=== PATIENT | female | born 2000 | race American Indian/Alaskan Native ===

== ENCOUNTER 2020-03-21 14:28 | Inpatient (IN) | payer OTHER ==
[2020-03-21] MEDS ORDERED: ONDANSETRON 4 MG/2 ML INJ IV PRN (16:07)
[2020-03-21] MEDS ORDERED: DINOPROSTONE 10 MG VAG SUPP VG ONE (16:07)
[2020-03-21] MEDS ORDERED: MINERAL OIL 30 ML ORAL LIQD PO PRN (16:07)
[2020-03-21] MEDS ORDERED: ePHEDrine SULFATE 50 MG/1 ML INJ IV PRN (16:07)
[2020-03-21] MEDS ORDERED: ACETAMINOPHEN 325 MG TAB PO PRN (16:07)
[2020-03-21] MEDS ORDERED: TERBUTALINE 1 MG/1 ML INJ SUB-Q PRN (16:07)
[2020-03-21] MEDS ORDERED: OXYTOCIN 20 UNIT/1000ML DRIP 20 UNITS/1,000 ML BAG IV SCH (17:00)
[2020-03-21 17:29] LABS: Hematocrit 34.8 % (30.3-42.9); Hemoglobin 11.3 gm/dl (10.1-14.3); Mean Corpuscular HGB Conc 33 % (30-34); Mean Corpuscular Volume 82 fl (79-97); Platelet Count 118 K/mm3 (140-440); Red Blood Count 4.24 M/mm3 (3.65-5.03); Red Cell Distribution Width 14.4 % (13.2-15.2)
[2020-03-21 17:51] LABS: Alanine Aminotransferase 8 units/L (7-56); Uric Acid 5.1 mg/dL (3.5-7.6)
[2020-03-21] MEDS: LACTATED RINGERS 1,000 ML IV SCH (21:35)
[2020-03-21] MEDS ORDERED: MAGNESIUM SULFATE 4 GM/100 ML BAG IV ONE (21:54)
[2020-03-21] MEDS ORDERED: MAGNESIUM SULFATE 40GM/1000ML 40 GM/1,000 ML BAG IV SCH (22:00)
[2020-03-22] MEDS: BUTORPHANOL 2 MG/1 ML INJ IV PRN ×2 (00:27→03:19)
--- NOTE | 2020-03-22 00:41 | History and Physical Report ---
History of Present Illness Date of examination: 03/22/20 Date of admission: 03/22/2020 Chief complaint: Presents for induction of labor due to Preeclampsia. Denies HAs, visual changes, epigastic pain, edema, and heartburn. History of present illness: Late entry to care; course complicated by RH Negative (received Rhogam on 01/17/20); Vitamin D Deficiency; and third trimester complicated by elevated blood pressures. Past History Past Medical History: neurologic (migraines) Family/Genetic History: diabetes, hypertension - Obstetrical History Expected Date of Delivery: 04/07/20 Actual Gestation: 37 Week(s) 5 Day(s) : 2 Para: 1 Hx # Term Pregnancies: 1 Number of Living Children: 1 #1 Infant Gender: Male year: 1,[birth year] Birthweight: 3.799 kg Method of Delivery: Vaginal Gestational age at delivery: 40 Complications: other (Preeclampsia) Medications and Allergies Allergies Allergy/AdvReac Type Severity Reaction Status Date / Time avocado Allergy Rash Verified 03/21/20 19:35 banana Allergy Rash Verified 03/21/20 19:35 lactose Allergy Rash Verified 03/21/20 19:35 latex Allergy Rash Verified 03/21/20 19:35 tomato AdvReac Severe Anaphylaxis Verified 03/21/20 15:21 Home Medications Medication Instructions Recorded Confirmed Last Taken Type Aspirin 80 mg PO DAILY 03/21/20 03/21/20 03/21/20 01:00 History Active Meds: Active Medications Acetaminophen (Tylenol) 650 mg PO Q4H PRN PRN Reason: Pain, Mild (1-3) Butorphanol Tartrate (Stadol) 2 mg IV Q2H PRN PRN Reason: Pain , Severe (7-10) Last Admin: 03/22/20 00:27 Dose: 2 mg Documented by: Ephedrine Sulfate (Ephedrine Sulfate) 10 mg IV Q2M PRN PRN Reason: Hypotension Lactated Ringer's (Lactated Ringers) 1,000 mls @ 125 mls/hr IV DIRECT CLAUDIA Last Admin: 03/21/20 21:35 Dose: 125 mls/hr Documented by: Oxytocin/Sodium Chloride (Pitocin/Ns 20 Unit/1000ml Drip) 20 units in 1,000 mls @ 125 mls/hr IV DIRECT CLAUDIA Magnesium Sulfate (Magnesium Sulfate 40gm/1000ml) 40 gm in 1,000 mls @ 50 mls/hr IV DIRECT CLAUDIA Last Admin: 03/22/20 00:21 Dose: 2 gm/hr, 50 mls/hr Documented by: Mineral Oil (Mineral Oil) 30 ml PO QHS PRN PRN Reason: Constipation Ondansetron HCl (Zofran) 4 mg IV Q8H PRN PRN Reason: Nausea And Vomiting Terbutaline Sulfate (Brethine) 0.25 mg SUB-Q ONCE PRN PRN Reason: Hyperstimulation/Hypertonicity Review of Systems All systems: negative - Vital Signs Vital signs: Vital Signs Pulse BP 85 143/92 03/21/20 15:17 03/21/20 15:17 Temp Pulse Resp BP Pulse Ox 99.2 F 90 18 130/89 99 03/21/20 19:30 03/22/20 00:35 03/21/20 19:30 03/22/20 00:35 03/22/20 00:35 - Physical Exam Breasts: Positive: normal Cardiovascular: Regular rate Lungs: Positive: Clear to auscultation, Normal air movement Abdomen: Positive: normal appearance, soft, normal bowel sounds Genitourinary (Female): Positive: normal external genitalia, normal perenium Anus/Rectum: Positive: normal perianal skin Extremities: Positive: normal - Obstetrical FHR: category 1 Uterine Contraction Monitor Mode: External Cervical Dilatation: 6.5 (Small amount of clear fluid upon AROM at 1213) Cervical Effacement Percentage: 70 station: 0 Uterine Contraction Pattern: Regular Uterine Tone Measurement Phase: Resting Uterine Contraction Intensity: Moderate Results Result Diagrams: 03/21/20 17:00 03/21/20 17:00 Abnormal lab results 03/21/20 03/21/20 Range/Units 17:00 17:00 MCH 27 L (28-32) pg Plt Count 118 L (140-440) K/mm3 Lactate Dehydrogenase 237 H (91-180) units/L All other labs normal. Assessment and Plan A: IUP @ 37 5/7 Weeks Category I Tracing Preclampsia GBS Negative P: Admit to L&D Per Routine Orders Cervidil Induction AROM Magnesium Sulfate 4/G loading dose; 2G/hourly
[2020-03-22] MEDS ORDERED: OXYTOCIN DRIP 30 UNITS/500 ML BAG IV SCH (01:35)
[2020-03-22] MEDS ORDERED: LIDOCAINE (2%) 20 MG/1 ML VIAL 20 ML MDV INFILTRATI ONE ×2 (03:07→03:25)
[2020-03-22] MEDS ORDERED: LANOLIN/ZINC/DIMETHICONE (LANSINOH) 7 GM TP PRN (03:46)
[2020-03-22] MEDS ORDERED: diphenhydrAMINE 25 MG CAP PO PRN (03:46)
[2020-03-22] MEDS ORDERED: HYDROcodone/ACETAMINOPHEN 5-325 MG TAB PO PRN (03:46)
[2020-03-22] MEDS ORDERED: WITCH HAZEL/ GLYCERIN PAD TP PRN (03:46)
--- NOTE | 2020-03-22 03:59 | Procedure Note ---
OB Delivery Note - Delivery Date of Delivery: 03/22/20 (0257) Surgeon: SIVAN CHINCHILLA Estimated blood loss: other (400) - Vaginal Delivery presentation: vertex Delivery position: OA Intrapartum events: gestational hypertension, preeclampsia Delivery induction: cervidil Delivery augmentation: rupture of membranes, pitocin Delivery monitor: external FHT, external uterine Route of delivery: Delivery placenta: spontaneous Delivery cord: 3 umbilical vessels Episiotomy: none Delivery laceration: 2nd degree Delivery repair: vicryl Anesthesia: local Delivery comments: of a live 6'9 female infant over a 2nd degree perineal laceration/ 1st degree periurethral under IV pain control with Apgars of 8 and 9 at 0257 on 03/22/2020. Infant directly to maternal abd/chest, skin to skin contact. Spontaneous delivery of placenta complete and intact with [place] side presenting at 0302. Fundus is firm and midline located 4 below the U. Lochia is scant. Delayed cord clamping and cutting. Vaginal lacerations repaired with 2-[address]-1 under local 2% Lidocaine. Cord blood collected; placenta to pathology. Continue Magnesium Sulfate 2G/hourly x 24 hour post delivery due to Preeclampsia. - Infant A at 1 minute: 8 at 5 minutes: 9 Gender: Female (6'9)
[2020-03-22] MEDS: PRENATAL VIT27-FE FUMARATE-FOLIC ACID VIT TAB PO SCH (10:04)
[2020-03-22] MEDS: LACTATED RINGERS 1,000 ML IV SCH (10:09)
[2020-03-22] MEDS ORDERED: LACTATED RINGERS 1,000 ML IV ONE (10:30)
[2020-03-22] MEDS: IBUPROFEN 600 MG TAB PO SCH ×2 (11:26→20:07)
[2020-03-22 18:24] LABS: Hematocrit 27.5 % (30.3-42.9)
[2020-03-22] MEDS ORDERED: MAGNESIUM SULFATE 40GM/1000ML 40 GM/1,000 ML BAG IV SCH (19:46)
[2020-03-23] MEDS: IBUPROFEN 600 MG TAB PO SCH ×4 (03:56→23:18)
[2020-03-23] MEDS: PRENATAL VIT27-FE FUMARATE-FOLIC ACID VIT TAB PO SCH (09:29)
--- NOTE | 2020-03-23 11:49 | Progress Note ---
Assessment and Plan - Patient Problems (1) Status post normal vaginal delivery Current Visit: Yes Status: Acute Plan to address problem: Continue routine PP orders Anticipate d/c home tomorrow F/U at office in 6 wks for routine PP visit Subjective - Subjective Date of service: 03/23/20 Principal diagnosis: S/P ; PPD#1 Interval history: See admission H & P; OB delivery summary and PP progress notes Patient reports: appetite normal, voiding normally, pain well controlled, flatus, ambulating normally [place]: doing well, bottle feeding Objective - Vital Signs Latest vital signs: Vital Signs Temp Pulse Resp BP Pulse Ox 03/23/20 08:43 97.8 F 88 16 121/80 100 03/23/20 05:16 86 18 129/85 100 03/23/20 04:40 98.5 F 94 H 18 128/74 100 03/23/20 03:29 107 H 100 03/23/20 03:24 98 H 100 03/23/20 03:21 96 H 122/82 03/23/20 03:19 102 H 100 03/23/20 03:14 100 H 100 03/23/20 03:12 110 H 93 03/23/20 03:09 101 H 100 03/23/20 03:06 101 H 115/76 03/23/20 03:04 106 H 100 03/23/20 02:59 103 H 100 03/23/20 02:54 96 H 100 03/23/20 02:51 98 H 124/75 03/23/20 02:49 99 H 100 03/23/20 02:44 99 H 100 03/23/20 02:39 103 H 100 03/23/20 02:36 97 H 119/74 03/23/20 02:34 103 H 100 03/23/20 02:29 99 H 100 03/23/20 02:24 102 H 100 03/23/20 02:21 96 H 123/77 03/23/20 02:19 101 H 100 03/23/20 02:14 100 H 100 03/23/20 02:09 103 H 100 03/23/20 02:06 102 H 128/82 03/23/20 02:04 98.9 F 100 H 18 100 03/23/20 01:59 102 H 100 03/23/20 01:54 99 H 100 03/23/20 01:51 93 H 125/72 03/23/20 01:49 103 H 100 03/23/20 01:44 106 H 100 03/23/20 01:39 101 H 99 03/23/20 01:36 105 H 132/71 03/23/20 01:34 115 H 100 03/23/20 01:29 114 H 100 03/23/20 01:24 101 H 99 03/23/20 01:21 106 H 125/68 03/23/20 01:19 99 H 100 03/23/20 01:14 99 H 99 03/23/20 01:09 101 H 100 03/23/20 01:06 104 H 121/68 03/23/20 01:04 105 H 99 03/23/20 01:01 108 H 94 03/23/20 00:59 107 H 100 03/23/20 00:54 113 H 100 03/23/20 00:52 107 H 118/43 03/23/20 00:49 101 H 100 03/23/20 00:44 110 H 100 03/23/20 00:39 100 H 100 03/23/20 00:36 103 H 125/75 03/23/20 00:34 107 H 100 03/23/20 00:29 104 H 100 03/23/20 00:24 106 H 100 03/23/20 00:21 104 H 128/80 03/23/20 00:19 105 H 100 03/23/20 00:14 105 H 100 03/23/20 00:09 107 H 100 03/23/20 00:06 101 H 125/80 03/23/20 00:04 107 H 100 03/22/20 23:59 114 H 100 03/22/20 23:54 101 H 100 03/22/20 23:51 105 H 119/78 03/22/20 23:49 99 H 100 03/22/20 23:44 108 H 100 03/22/20 23:39 104 H 100 03/22/20 23:36 106 H 117/78 03/22/20 23:34 104 H 100 03/22/20 23:29 111 H 100 03/22/20 23:24 99 H 100 03/22/20 23:21 104 H 122/79 03/22/20 23:19 107 H 100 03/22/20 23:14 104 H 100 03/22/20 23:09 112 H 100 03/22/20 23:06 106 H 126/85 03/22/20 23:04 100 H 97 03/22/20 22:59 98.5 F 105 H 18 100 03/22/20 22:58 106 H 89 03/22/20 22:54 107 H 99 03/22/20 22:51 107 H 134/81 03/22/20 22:49 108 H 100 03/22/20 22:44 110 H 100 03/22/20 22:39 101 H 100 03/22/20 22:36 97 H 127/81 03/22/20 22:34 103 H 100 03/22/20 22:29 98 H 100 03/22/20 22:24 104 H 100 03/22/20 22:21 103 H 133/89 03/22/20 22:19 101 H 100 03/22/20 22:14 108 H 100 03/22/20 22:09 109 H 100 03/22/20 22:06 104 H 129/86 03/22/20 22:04 111 H 100 03/22/20 21:59 107 H 100 03/22/20 21:54 107 H 100 03/22/20 21:51 99 H 115/76 03/22/20 21:49 91 H 100 03/22/20 21:44 99 H 99 03/22/20 21:39 88 100 03/22/20 21:36 94 H 126/82 03/22/20 21:34 93 H 100 03/22/20 21:29 103 H 99 03/22/20 21:24 94 H 100 03/22/20 21:21 96 H 120/84 03/22/20 21:19 99 H 100 03/22/20 21:14 100 H 100 03/22/20 21:09 95 H 100 03/22/20 21:06 99 H 128/89 03/22/20 21:04 100 H 100 03/22/20 20:59 98 H 100 03/22/20 20:54 94 H 100 03/22/20 20:51 96 H 138/89 03/22/20 20:49 98 H 100 03/22/20 20:44 97 H 100 03/22/20 20:39 95 H 100 03/22/20 20:36 95 H 131/81 03/22/20 20:34 95 H 100 03/22/20 20:29 91 H 100 03/22/20 20:24 99 H 100 03/22/20 20:21 96 H 133/87 03/22/20 20:19 105 H 99 03/22/20 20:14 107 H 100 03/22/20 20:09 97 H 100 03/22/20 20:06 92 H 133/86 03/22/20 20:04 107 H 100 03/22/20 19:59 105 H 100 03/22/20 19:54 99 H 100 03/22/20 19:51 109 H 127/88 03/22/20 19:50 99.3 F 18 100 03/22/20 19:49 110 H 100 03/22/20 19:44 102 H 100 03/22/20 19:39 105 H 100 03/22/20 19:36 104 H 126/89 03/22/20 19:34 97 H 100 03/22/20 19:29 97 H 100 03/22/20 19:24 100 H 100 03/22/20 19:21 107 H 128/81 03/22/20 19:19 102 H 100 03/22/20 19:14 107 H 100 03/22/20 19:09 100 H 100 03/22/20 19:06 97 H 134/84 03/22/20 19:04 103 H 100 03/22/20 18:59 108 H 100 03/22/20 18:54 106 H 100 03/22/20 18:51 99 H 133/86 03/22/20 18:49 100 H 100 03/22/20 18:44 105 H 100 03/22/20 18:39 99 H 100 03/22/20 18:37 99 H 128/83 03/22/20 18:34 95 H 100 03/22/20 18:29 90 100 03/22/20 18:24 97 H 100 03/22/20 18:21 93 H 121/80 03/22/20 18:19 98 H 100 03/22/20 18:14 104 H 100 03/22/20 18:09 106 H 100 03/22/20 18:06 102 H 121/84 03/22/20 18:04 98 H 100 03/22/20 17:59 92 H 100 03/22/20 17:54 103 H 100 03/22/20 17:51 108 H 129/86 03/22/20 17:49 106 H 100 03/22/20 17:44 109 H 100 03/22/20 17:39 108 H 99 03/22/20 17:36 104 H 124/81 03/22/20 17:34 101 H 100 03/22/20 17:29 104 H 100 03/22/20 17:24 103 H 100 03/22/20 17:21 97 H 130/86 03/22/20 17:19 97 H 100 03/22/20 17:14 112 H 100 03/22/20 17:09 104 H 100 03/22/20 17:06 104 H 134/92 03/22/20 17:04 104 H 100 03/22/20 16:59 107 H 100 03/22/20 16:54 106 H 100 03/22/20 16:51 99 H 124/82 03/22/20 16:49 104 H 100 03/22/20 16:44 107 H 100 03/22/20 16:39 109 H 100 03/22/20 16:36 104 H 130/87 03/22/20 16:34 113 H 100 03/22/20 16:29 114 H 100 03/22/20 16:24 110 H 100 03/22/20 16:21 109 H 117/77 03/22/20 16:19 103 H 99 03/22/20 16:14 110 H 100 03/22/20 16:09 104 H 100 03/22/20 16:06 110 H 119/80 03/22/20 16:04 111 H 100 03/22/20 15:59 109 H 100 03/22/20 15:54 109 H 99 03/22/20 15:51 105 H 125/76 03/22/20 15:49 103 H 99 03/22/20 15:44 117 H 100 03/22/20 15:39 109 H 100 03/22/20 15:36 110 H 123/75 03/22/20 15:34 107 H 100 03/22/20 15:29 111 H 100 03/22/20 15:24 110 H 100 03/22/20 15:21 105 H 129/72 03/22/20 15:19 117 H 100 03/22/20 15:14 117 H 100 03/22/20 15:09 118 H 100 03/22/20 15:06 110 H 123/68 03/22/20 15:04 111 H 99 03/22/20 15:00 98.6 F 03/22/20 14:59 104 H 99 03/22/20 14:54 106 H 100 03/22/20 14:51 108 H 123/64 03/22/20 14:49 107 H 100 03/22/20 14:44 122 H 100 03/22/20 14:39 118 H 99 03/22/20 14:36 111 H 126/73 03/22/20 14:34 107 H 99 03/22/20 14:29 105 H 100 03/22/20 14:24 108 H 100 03/22/20 14:21 105 H 122/72 03/22/20 14:19 110 H 100 03/22/20 14:14 108 H 100 03/22/20 14:09 110 H 100 03/22/20 14:06 111 H 128/76 03/22/20 14:04 108 H 100 03/22/20 13:59 112 H 100 03/22/20 13:54 112 H 100 03/22/20 13:51 111 H 127/67 03/22/20 13:49 116 H 100 03/22/20 13:44 107 H 100 03/22/20 13:39 118 H 100 03/22/20 13:36 117 H 132/67 03/22/20 13:34 104 H 100 03/22/20 13:29 102 H 100 03/22/20 13:24 105 H 100 03/22/20 13:21 105 H 129/68 03/22/20 13:19 99 H 99 03/22/20 13:14 99 H 100 03/22/20 13:09 100 H 100 03/22/20 13:06 103 H 125/77 03/22/20 12:59 112 H 100 03/22/20 12:54 98 H 100 03/22/20 12:51 107 H 122/74 03/22/20 12:49 109 H 100 03/22/20 12:44 105 H 100 03/22/20 12:39 104 H 100 03/22/20 12:36 107 H 117/69 03/22/20 12:34 103 H 100 03/22/20 12:29 102 H 100 03/22/20 12:24 102 H 100 03/22/20 12:21 100 H 117/69 03/22/20 12:19 97 H 100 03/22/20 12:14 95 H 100 03/22/20 12:09 105 H 100 03/22/20 12:06 96 H 118/77 03/22/20 12:04 94 H 100 03/22/20 12:00 98.8 F 03/22/20 11:59 96 H 99 03/22/20 11:54 94 H 100 03/22/20 11:51 92 H 114/72 03/22/20 11:49 89 100 Intake and Output 03/22/20 03/23/20 03/23/20 23:59 07:59 15:59 Intake Total 800 240 Output Total 1100 1900 Balance -300 -1900 240 Intake: Oral 800 240 Output: Urine 1100 1900 Indwelling Catheter 750 1500 Void 350 400 Other: Total, Intake Amount 250 240 Total, Output Amount 750 400 # Voids Void 1 1 - Exam Breasts: Present: normal Cardiovascular: Present: Regular rate Lungs: Present: Normal air movement Abdomen: Present: soft Uterus: Present: firm, fundal height below umbilicus (U-2) Extremities: Present: normal Deep Tendon Reflex Grade: Normal +2 - Labs Labs: Abnormal lab results 03/22/20 03/22/20 Range/Units 18:08 20:12 Hgb 9.0 L (10.1-14.3) gm/dl Hct 27.5 L D (30.3-42.9) % Magnesium 6.20 H (1.7-2.3) mg/dL
--- NOTE | 2020-03-23 11:51 | Discharge Summary ---
Providers - Providers Date of Admission: 03/21/20 16:08 Date of discharge: 03/24/20 (0900) Attending physician: DURAN ROBERTSON Primary care physician: DURAN ROBERTSON Hospitalization Reason for admission: active labor Delivery: Episiotomy: none Laceration: none Other procedures: none complications: none Discharge diagnosis: IUP at term delivered, other (anemia) [place] baby: female Condition at discharge: Good Disposition: DC-01 TO HOME OR SELFCARE - Discharge Diagnoses (1) Status post normal vaginal delivery Status: Acute (2) Anemia Status: Acute Qualifiers: Anemia type: other cause Other causes of anemia: acute posthemorrhagic Qualified Code(s): D62 - Acute posthemorrhagic anemia Plan - Provider Discharge Summary Activity: routine, no sex for 6 weeks, no heavy lifting 4 weeks, no strenuous exercise Diet: other (Iron rich diet) Instructions: routine Additional instructions: [] Smoking cessation referral if applicable(refer to patient education folder for contact #) [] Refer to [facility] Booklet Call your doctor immediately for: * Fever > 100.5 * Heavy vaginal bleeding ( >1 pad per hour) * Severe persistent headache * Shortness of breath * Reddened, hot, painful area to leg or breast - Follow up plan Follow up: DURAN ROBERTSON MD [Primary Care Provider] - 6 Weeks
[2020-03-24 12:28] VITALS: BP 115/82
== END 2020-03-24 13:00 | disposition home or self-care (01) | DRG 775 ==
LOC: TRG 14:28 → LD 14:30 → TRG 16:07 → LD 16:08 → OB 03-23 05:36
PROVIDERS: ADMIT Obstetrics & Gynecology; ATTEND Obstetrics & Gynecology
PROC: 10E0XZZ Delivery of Products of Conception, External Approach (ICD-10-PCS; principal; 2020-03-22)
PROC: 0KQM0ZZ Repair Perineum Muscle, Open Approach (ICD-10-PCS; 2020-03-22)
PROC: 3E0R3BZ Introduction of Anesthetic Agent into Spinal Canal, Percutaneous Approach (ICD-10-PCS; 2020-03-22)
PROC: 00HU33Z Insertion of Infusion Device into Spinal Canal, Percutaneous Approach (ICD-10-PCS; 2020-03-22)
PROC: 3E0P7VZ Introduction of Hormone into Female Reproductive, Via Natural or Artificial Opening (ICD-10-PCS; 2020-03-22)
DX: O11.4 Pre-existing hypertension with pre-eclampsia, complicating childbirth (principal); O70.1 Second degree perineal laceration during delivery; O99.344 Other mental disorders complicating childbirth; G43.909 Migraine, unspecified, not intractable, without status migrainosus; O75.89 Other specified complications of labor and delivery; E55.9 Vitamin D deficiency, unspecified; O99.02 Anemia complicating childbirth; D62 Acute posthemorrhagic anemia; Z3A.37 37 weeks gestation of pregnancy; Z37.0 Single live birth; Z67.21 Type B blood, Rh negative; Z83.3 Family history of diabetes mellitus; Z82.49 Family history of ischemic heart disease and other diseases of the circulatory system; O99.354 Diseases of the nervous system complicating childbirth
CPT/HCPCS: 36415; 82565; 83615; 83735; 84450; 84460; 84550; 85014; 85018; 85027; 86592; 86850; 86900; 86901; 88307; G0378; J0595; J2590; J3475; J7120; U0003-CS